=== PATIENT | female | born 1995 ===

== ENCOUNTER 2018-02-21 06:29 | Day surgery (SDC) | payer BC ==
[2018-02-21 06:41] VITALS: BMI 19.3
[2018-02-21 07:18] LABS: HEMOGLOBIN 13.8 g/dL (12.0-16.0); MEAN CELL VOLUME 86.8 fl (81.0-99.0); MEAN CORPUSCULAR HEMOGLOBIN 29.1 pg (27.0-31.0); MEAN CORPUSCULAR HGB CONC 33.5 g/dL (33.0-37.0); RBC 4.73 Mil/uL (3.80-5.20); RED CELL DISTRIBUTION WIDTH 12.6 % (11.5-14.5); WHITE BLOOD COUNT 6.5 K/uL (4.8-10.8)
[2018-02-21 07:21] VITALS: RESP 18
[2018-02-21] MEDS ORDERED: Lactated Ringer's 1,000 ML IV ONE ×3 (08:30→09:17)
[2018-02-21] MEDS: Bupivacaine HCl 0.25% PF (30 ml) Inj ONE ×2 (08:35→09:36)
[2018-02-21] MEDS ORDERED: Neostigmine 1:1000 (1 mg/ml) Inj ONE (09:07)
[2018-02-21] MEDS ORDERED: Esmolol 100 mg/10ml Inj IV ONE (09:07)
[2018-02-21] MEDS ORDERED: Oxycodone/Acetaminophen 5/325 mg Tab PO PRN (12:12)
[2018-02-21] MEDS ORDERED: Lactated Ringer's 1,000 ML IV SCH (12:12)
[2018-02-21] MEDS ORDERED: Oxycodone/Acetaminophen 5/325 mg Tab PO ONE (13:25)
[2018-02-21 17:28] VITALS: O2SAT 100
[2018-02-21 18:11] VITALS: BP 112/67; PULSE 96; TEMP 98.4
--- NOTE | 2018-02-22 08:39 | OP ---
PROCEDURE DATE: 02/21/18 PREOPERATIVE DIAGNOSIS: Left dermoid cyst. POSTOPERATIVE DIAGNOSIS: Left dermoid cyst. PROCEDURE: Robotic assisted cystectomy. SURGEON: Gay Belcher M.D. AIR TOOL OPERATOR: Mati Gifford DO. He was instrumental in creating exposure, retraction, irrigation and hemostasis. The procedure had not been possible without his assistance. OPERATIVE FINDINGS: Normal external female genitalia. Urethra normal. Cervix smooth. Vagina pink. Uterus anteverted. Left adnexal fullness. INTRAOPERATIVE FINDINGS: Left 3 to 4 cm dermoid cyst; normal uterus, tubes and ovaries were identified. Normal right ovary. Left ovary contained dermoid. URINE OUTPUT: Approximately 600 mL of clear urine. IV FLUIDS: The patient received approximately 1200 mL of D5 LR intraoperatively. COMPLICATIONS: There were no complications. ESTIMATED BLOOD LOSS: Approximately 15 mL. DESCRIPTION OF PROCEDURE: After informed consent was obtained, the patient was taken to the operating room where she was given general anesthesia. She was then prepped and draped in a normal sterile fashion. Attention was then turned to the vagina where a speculum was inserted. The anterior lip of the cervix was grasped with a single tooth tenaculum. The cervix was gently dilated. A HUMI uterine manipulator was then inserted into the uterine cavity as a means to manipulate the uterus. A Campos catheter was inserted into the bladder to monitor the patient's urinary output. Attention was then turned to the umbilical fold where 8 mm incision was made after Marcaine was infused. The abdomen was tented upward and the Veress needle was inserted without difficulty. Placement was confirmed with a fluid filled syringe. The abdomen was then tented upward. The placement was confirmed with a fluid filled syringe. The abdomen was then insufflated with 15 mmHg. The Veress needle was removed, and an 8 mm robotic port was introduced into the abdominal cavity. Placement was confirmed with laparoscope. The abdomen was surveyed with findings noted above. Attention was then turned to approximately 3 cm superior to the right anterior iliac crest where Marcaine was infused. An 8 mm incision was made and an 8 mm robotic port was introduced into the abdominal cavity. Similar procedure was performed on the left. The 5 mm port was then inserted, approximately 10 cm left and lateral to the umbilicus. A 5 mm incision was made and a 5 mm port was introduced under direct visualization. The patient was then placed in steep Trendelenburg. The robot was brought along the patient's side and docked without complication. The instruments used for the surgery were PK dissector, scissor, and a laparoscopic grasper. I then broke, scrub, and proceeded to the surgical console. Attention was then turned to the left ovary where the dermoid was identified. The ovarian cortex was scored and the cyst wall was identified using both sharp and blunt dissection. The ovarian cyst was enucleated from the ovary and placed anterior to the uterus. The ovary was then irrigated. Hemostasis was obtained using the PK dissector. The area was then irrigated. The irrigant was removed with a suction device. Hemostasis was noted. The robot was then undocked from the patient. A 10 mm Endobag was placed to the umbilical incision. The specimen was bagged and extracted to the umbilicus. The umbilical fascia was repaired with 0 Vicryl in an interrupted fashion. The remaining port sites were repaired with Dermabond. All sponge, lap, needle, and instruments counts were correct x2; and the patient was taken to the recovery room in awake and stable condition. Gay Belcher MD
== END 2018-02-21 18:10 | disposition home or self-care (01) ==
LOC: H.OPSURG 06:29
PROVIDERS: ATTEND Obstetrics & Gynecology Gynecology
DX: D27.1 Benign neoplasm of left ovary (principal); J45.909 Unspecified asthma, uncomplicated
CPT/HCPCS: 36415; 47562; 85027; 86850; 86900; 88305; J0690; J1170; J2175; J2405; J2710; J2765; J7120